=== PATIENT | female | born 1955 | race African-American/Black ===

== ENCOUNTER 2023-10-05 07:49 | Outpatient (CLI) | payer OTHER, MEDICARE, SELFPAY ==
--- NOTE | ~2023-10-05 | XR_ITS ---
3 VIEWS THORACIC SPINE Ordering provider: Jayson Ferguson, History: . THORACIC BACK PAIN NKI . Comparison: None. FINDINGS: VERTEBRAL BODIES: Normal height and alignment. No visible fracture or subluxation. Degenerative orr es of the spine. DISK SPACES: Multiple disc space narrowing in the midthoracic area. SOFT TISSUES: Normal. IMPRESSION: No acute osseous abnormality of the thoracic spine. Reviewed, dictated and finalized at location A.
== END 2023-10-05 07:50 | disposition home or self-care (01) ==
PROVIDERS: PCP Internal Medicine; Visit Provider Internal Medicine
DX: M54.6 Pain in thoracic spine (principal)
CPT/HCPCS: 72072

== ENCOUNTER 2024-01-23 12:05 | Outpatient (RCR) | payer OTHER, MEDICARE, SELFPAY ==
--- NOTE | 2024-01-23 13:27 | OPREHPOC ---
Outpatient Therapy Plan of Care This is a Multidisciplinary Plan of Care that may contain components documented by all disciplines (PT, OT, and ST.) PT Problem 1 PT Problem #1 Knowledge Deficit PT Goal 1 Goal / Goal Update *indep with HEP * correct body mechanics with exercises and lifting demonstrated Target Visit 6 PT Problem 2 PT Problem #2 Pain PT Goal 1 Goal / Goal Update 1* pain rating at worst of 3/10 2* self assessment Oswestry rating of 6% limitation in activity level 3* pt report able to lie on her L side for sleeping Target Visit 6 PT Problem 3 PT Problem #3 Impaired Strength PT Goal 1 Goal / Goal Update increase thoracic strength to improve posture and position of spine 1* pt perform 20 reps of mat and standing thoracic /scapular strengthening 2* pt maintain correct position of shoulders during PT session 3* supine to sit with correct technique and NO pain increase Target Visit 6
--- NOTE | 2024-01-23 13:28 | PTOPEVAL1 ---
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 Gradual onset without an injury or trauma to her back. Self assessment Oswestry back rating of 10% limitation in activity. With the evaluation: pain is increased with standing trunk rotation to L, lying on her L side and supine to sit transfer; there are spasms over L thoracic paraspinals. She has decreased thoracic mobility with all 4 arch/sag stretching and rounded shoulder posture with flat thoracic spine. Skilled PT services for modalities to decrease pain; therapeutic exercises to increase flexibility and strength of thoracic area with education for HEP and posture correction. Plan of Care Interventions Electrical Stimulation,Hot Pack/Cold Pack,Manual Therapy,Neuro Re-education,Patient Education,Therapeutic Activities,Therapeutic Exercise,Ultrasound,Other Other Interventions taping PT Services Indicated Yes Treatment Frequency and 1-2x/wk for 6 visits Duration These treatments will address the objective and functional deficits as defined above. The patient will be advanced safely and appropriately in order for the patient to progress towards his/her prior level of function. Additional exercises will be introduced and as well as a comprehensive home exercise program upon discharge, if needed, ?to ensure carryover of functional gains achieved in the clinic. This treatment plan has been reviewed and agreement upon by the patient.
--- NOTE | 2024-02-08 12:10 | PCPTNOTE ---
Addendum entered by Mily Muñiz, PHYSICAL ANTHROPOLOGIST 02/08/24 12:11: Pt no showed visit today. Original Note: Pt canceled today and gave no reason.
--- NOTE | 2024-02-13 11:26 | PCPTNOTE ---
Pt NS and was called, Left message.
--- NOTE | 2024-02-15 14:08 | PTOPDC ---
Assessment and note entered by Iqra Moncada, PT Discharge Report Assessment Status Discharge - Pt Not Present ICD-10 Condition Codes (PT) M54.6 Onset September 2023 Subjective Information pt was not seen this date; Assessment PT Clinical Summary Priti received the PT evaluation on Jan 22. She called/canceled 1 and did not show for 1 appointment. Then called and canceled all of the remaining appointments. Discharge PT per pt request. The goals were not addressed. Plan of Care PT Services Indicated No
== END 2024-02-16 11:33 | disposition home or self-care (01) ==
LOC: ANHPT 12:05
PROVIDERS: PCP Internal Medicine; Visit Provider Internal Medicine
DX: M54.6 Pain in thoracic spine (principal)
CPT/HCPCS: 97014; 97110; 97161; 97530; G0283

== ENCOUNTER 2024-06-27 07:36 | Outpatient (CLI) | payer MEDICARE, OTHER, SELFPAY ==
--- NOTE | ~2024-06-27 | MR_ITS ---
MRI of the left knee Clinical history: Pain Technique: Coronal proton density and proton density-weighted images, sagittal proton-density and T2 fat-sat images, and axial proton-density fat-saturated images were acquired. Findings: Anterior and posterior cruciate ligaments are intact medial collateral ligament and the lat eral collateral ligament complex are intact. Popliteus tendon is intact. Medial and lateral menisci are intact, without evidence of tear. There is mild chondral thinning at the patellar apex extending to lateral facet. Remaining articular cartilage is well preserved. Bone marrow signals are intact. Extensor mechanism is intact. Small joint effusion present. No Tao's cyst. Impression: Mild chondromalacia patella. Small joint effusion. Reviewed, dictated and finalized at location . Impression: Mild chondromalacia patella. Small joint effusion.
== END 2024-06-27 07:37 | disposition home or self-care (01) ==
LOC: MICIMG 07:37
PROVIDERS: PCP Internal Medicine
DX: M25.462 Effusion, left knee (principal)
CPT/HCPCS: 73721

== ENCOUNTER 2025-01-30 13:19 | Outpatient (CLI) | payer OTHER, MEDICARE, SELFPAY ==
--- NOTE | ~2025-01-30 | MM_ITS ---
EXAMINATION: MM screening nataliya BI w kristan HISTORY: Screening TECHNIQUE: Craniocaudal and mediolateral oblique 3-D tomosynthesis images were obtained and synthetic 2-D images were generated. CAD analysis was submitted and interpreted. COMPARISON: No prior mammogram is available for comparison at this institution. BREAST PARENCHYMAL COMPOSITION: Not Dense: The breasts are almost entirely fatty. FINDINGS: There is no evidence of suspicious mass, calcification, or architectural distortion to suggest malignancy in either breast. There has been no suspicious interval change. IMPRESSION: 1. No mammographic evidence of malignancy. 2. Recommend routine screening mammography in one year. BI-RADS Category 1: Negative Reviewed, dictated and finalized at location O.
== END 2025-01-30 13:20 | disposition home or self-care (01) ==
LOC: MICIMG 13:19
PROVIDERS: PCP Internal Medicine; Visit Provider Obstetrics & Gynecology
DX: Z12.31 Encounter for screening mammogram for malignant neoplasm of breast (principal)
CPT/HCPCS: 77063; 77067